=== PATIENT | female | born 1965 | race Caucasian/White ===

== ENCOUNTER 2023-12-19 05:15 | Inpatient (IN) ==
[2023-12-19] MEDS: 0.9 % SODIUM CHLORIDE 1,000 ML IV ONE ×2 (05:40→07:21)
[2023-12-19] MEDS: levETIRAcetam 1,000 MG in 0.9 % SODIUM CHLORIDE 100 ML IV ONE (05:40)
[2023-12-19 06:14] LABS: Basophils # (Auto) 0.04 K/mcL (0.00-0.30); Basophils % (Auto) 0.5 % (0.0-2.0); Eosinophils # (Auto) 0.17 K/mcL (0.00-0.70); Eosinophils % (Auto) 1.9 % (0.0-7.0); Hematocrit 38.8 % (34.1-44.9); Hemoglobin 11.9 g/dL (11.2-15.7); Lymphocytes # (Auto) 1.29 K/mcL (1.50-4.80); Lymphocytes % (Auto) 14.7 % (15.5-49.0); Mean Cell Volume 92.6 fL (80.0-100.0); Mean Corpuscular HGB Conc 30.7 g/dL (31.0-36.0); Mean Platelet Volume 9.7 fL (8.8-12.5); Monocytes # (Auto) 0.43 K/mcL (0.10-0.90); Monocytes % (Auto) 4.9 % (1.0-12.0); Neutrophils % (Auto) 77.8 % (38.0-78.0); Platelet Count 239 K/mcL (140-440); RBC 4.19 M/mcL (3.59-5.38); Red Cell Distribution Width 14.3 % (11.5-14.5); WBC 8.8 K/mcL (4.5-11.0)
[2023-12-19 06:20] LABS: Alcohol, Blood < 10.1 mg/dL; Alcohol,Blood < 0.010 gm/dL (<0.010)
[2023-12-19 06:28] LABS: ALT/SGPT 8 U/L (<40); AST/SGOT 21 U/L (<32); Albumin 3.8 gm/dL (3.2-5.2); Albumin/Globulin Ratio 1.1 (1.0-2.3); Alkaline Phosphatase 122 U/L (39-117); Bilirubin,Total 0.3 mg/dL (0.1-1.0); Blood Urea Nitrogen 17 mg/dL (6-20); Calcium 9.2 mg/dL (8.6-10.4); Carbon Dioxide 26 mmol/L (22-30); Chloride 97 mmol/L (96-108); Globulin 3.6 gm/dL (2.2-3.7); Glomerular Filtration Rate 61; Glucose 197 mg/dL (70-105)
[2023-12-19] MEDS: MECLIZINE 25 MG TABLET PO ONE (07:20)
[2023-12-19 09:33] LABS: Amphetamine Screen,Urine None detected; Barbiturate Screen,Urine Suspect positive; Benzodiazepines Screen,Urine None detected; Cannabinoid Screen,Urine None detected; Cocaine Screen,Urine None detected; Opiate Screen,Urine None detected; Oxycodone, Urine Screen None detected; Phencyclidine Screen,Urine None detected
[2023-12-19 09:54] LABS: Appearance,Urine HAZY (Clear); Bilirubin,Urine Negative (Negative); Color,Urine YELLOW; Culture Indicated,Urine No; Glucose,Urine (UA) Negative (Negative); Ketones,Urine Negative (Negative); Leukocyte Esterase,Urine Negative /uL (Negative); Mucus,Urine FEW /hpf; Nitrate,Urine Negative (Negative); Protein,Urine Negative (Negative); Specific Gravity,Urine 1.009 (1.000-1.035); Urine Hyaline Cast 7 /lph (0-2); Urine RBC 4 /hpf (0-3); Urine Squamous Epithelial Cell 1 /hpf (0-4); Urine WBC 0 /hpf (0-4); Urobilinogen,Urine Negative
[2023-12-19 10:19] LABS: ABG Methemoglobin 0.2 % (0.4-1.5); Total Hemoglobin 12.7 gm/Dl (12.0-15.0); VBG Base Excess 1 (-2-3); VBG HCO3 28.5 mmol/L (24.0-28.0); VBG Oxygen Saturation 83.3 % (40.0-70.0); VBG PCO2 57.9 mmHg (41.0-51.0); VBG PH 7.31 U (7.32-7.42); VBG Total CO2 30.3 mmol/L (25.0-29.0)
[2023-12-19] MEDS: NALOXONE HCL 0.4 MG/ML VIAL IV ONE (11:06)
[2023-12-19] MEDS: DIAZEPAM 10 MG/2 ML SYRINGE IV ONE (13:00)
[2023-12-19] MEDS: LORazepam 2 MG/ML VIAL IV ONE ×2 (14:21→18:50)
[2023-12-19] MEDS ORDERED: LORazepam 2 MG/ML VIAL IV PRN (14:41)
[2023-12-19] MEDS ORDERED: ONDANSETRON 4 MG/2 ML VIAL IV PRN (14:48)
[2023-12-19] MEDS ORDERED: SENNOSIDES 1 TABLET PO PRN (14:48)
[2023-12-19] MEDS ORDERED: LACTULOSE 20 GM/30 ML ORAL.SOL PO PRN (14:48)
[2023-12-19 15:17] LABS: C-Reactive Protein 0.85 mg/dL (0.03-0.80)
[2023-12-19] MEDS: LACTATED RINGERS 1,000 ML IV SCH (15:29)
[2023-12-19] MEDS: 0.9 % SODIUM CHLORIDE 10 ML SYRINGE IV SCH (15:34)
[2023-12-19] MEDS: DOCUSATE SODIUM 100 MG CAPSULE PO SCH (19:19)
[2023-12-19] MEDS ORDERED: ENOXAPARIN 40 MG/0.4 ML SYRINGE SQ SCH (21:00)
[2023-12-19] MEDS ORDERED: levETIRAcetam 500 MG in 0.9 % SODIUM CHLORIDE 100 ML IV SCH (21:00)
== END 2023-12-19 20:49 | disposition short-term general hospital (02) | DRG 101 ==
LOC: ED 05:15 → ICU 14:03
PROVIDERS: ADMIT Student in an Organized Health Care Education/Training Program; ATTEND Student in an Organized Health Care Education/Training Program

== ENCOUNTER 2025-05-31 19:21 | Inpatient (IN) ==
[2025-05-31 20:04] LABS: Basophils # (Auto) 0.03 K/mcL (0.00-0.30); Basophils % (Auto) 0.3 % (0.0-2.0); Eosinophils # (Auto) 0.22 K/mcL (0.00-0.70); Eosinophils % (Auto) 1.9 % (0.0-7.0); Hematocrit 38.7 % (34.1-44.9); Hemoglobin 11.1 g/dL (11.2-15.7); Lymphocytes # (Auto) 2.18 K/mcL (1.50-4.80); Lymphocytes % (Auto) 19.3 % (15.5-49.0); Mean Corpuscular HGB Conc 28.7 g/dL (31.0-36.0); Monocytes # (Auto) 0.69 K/mcL (0.10-0.90); Monocytes % (Auto) 6.1 % (1.0-12.0); Neutrophils % (Auto) 72.3 % (38.0-78.0); Platelet Count 232 K/mcL (140-440); RBC 4.04 M/mcL (3.59-5.38); WBC 11.3 K/mcL (4.5-11.0)
[2025-05-31] MEDS: AZITHROMYCIN 500 MG in DEXTROSE 5% IN WATER 250 ML IV ONE (20:15)
[2025-05-31] MEDS: cefTRIAXone 1 GM VIAL IV ONE (20:16)
[2025-05-31] MEDS: 0.9 % SODIUM CHLORIDE 1,000 ML IV ONE (20:16)
[2025-05-31 20:46] LABS: Bacteria,Urine Few /hpf (0); Bilirubin,Urine Negative (Negative); Color,Urine Yellow; Glucose,Urine (UA) Negative (Negative); Ketones,Urine Negative (Negative); Leukocyte Esterase,Urine Negative /uL (Negative); PH,Urine 6.0 (5.0-9.0); Protein,Urine Negative (Negative); Specific Gravity,Urine 1.020 (1.000-1.035); Urobilinogen,Urine Normal
[2025-05-31 20:52] LABS: ALT/SGPT 5 U/L (<40); AST/SGOT 12 U/L (<32); Albumin 3.4 gm/dL (3.2-5.2); Albumin/Globulin Ratio 1.0 (1.0-2.3); Alkaline Phosphatase 137 U/L (39-117); Anion Gap 9.0 (8.0-16.0); Bilirubin,Total 0.3 mg/dL (0.1-1.0); Blood Urea Nitrogen 11 mg/dL (6-20); Calcium 9.0 mg/dL (8.6-10.4); Carbon Dioxide 26 mmol/L (22-30); Chloride 105 mmol/L (96-108); Globulin 3.5 gm/dL (2.2-3.7); Glucose 128 mg/dL (70-105); Potassium 4.1 mmol/L (3.3-5.1); Sodium 140 mmol/L (133-145)
[2025-05-31] MEDS: IPRATROPIUM/ALBUTEROL 3 ML AMPUL.NEB NEB ONE (20:59)
[2025-05-31] MEDS: 0.9 % SODIUM CHLORIDE 500 ML IV ONE (22:54)
[2025-05-31] MEDS: levETIRAcetam 500 MG in 0.9 % SODIUM CHLORIDE 100 ML IV ONE (23:51)
[2025-06-01] MEDS: NICOTINE 21 MG PATCH TOPICAL ONE (00:03)
[2025-06-01] MEDS: NICOTINE 14 MG PATCH TOPICAL ONE (00:06)
[2025-06-01] MEDS ORDERED: ONDANSETRON 4 MG/2 ML VIAL IV PRN (01:11)
[2025-06-01] MEDS ORDERED: LACTULOSE 20 GM/30 ML ORAL.SOL PO PRN (01:11)
[2025-06-01] MEDS ORDERED: SENNOSIDES 1 TABLET PO PRN (01:11)
[2025-06-01] MEDS ORDERED: guaiFENesin/DEXTROMETHORPHAN 5ML UD CUP PO PRN (01:11)
[2025-06-01] MEDS: AZITHROMYCIN 500 MG in DEXTROSE 5% IN WATER 250 ML IV SCH ×2 (01:13→09:40)
[2025-06-01] MEDS: cefTRIAXone 2 GM in DEXTROSE 5% IN WATER 50 ML IV SCH ×2 (01:14→09:40)
[2025-06-01] MEDS: KETOROLAC 30 MG/ML VIAL IV PRN (02:03)
[2025-06-01] MEDS: ACETAMINOPHEN 325 MG TABLET PO PRN (02:09)
[2025-06-01 02:45] LABS: VBG HCO3 23.9 mmol/L (24.0-28.0); VBG PCO2 48.5 mmHg (41.0-51.0); VBG PH 7.31 U (7.32-7.42); VBG PO2 98.3 mmHg (25.0-40.0)
[2025-06-01] MEDS: IPRATROPIUM/ALBUTEROL 3 ML AMPUL.NEB NEB SCH (02:51)
[2025-06-01] MEDS: ACETAMINOPHEN 325 MG TABLET PO ONE (04:15)
[2025-06-01] MEDS: KETOROLAC 30 MG/ML VIAL ONE (04:15)
[2025-06-01] MEDS: 0.9 % SODIUM CHLORIDE 1,000 ML IV SCH (04:26)
[2025-06-01] MEDS: 0.9 % SODIUM CHLORIDE 10 ML SYRINGE IV SCH (04:27)
[2025-06-01 05:47] LABS: VBG HCO3 24.6 mmol/L (24.0-28.0); VBG PCO2 49.2 mmHg (41.0-51.0); VBG PH 7.32 U (7.32-7.42); VBG PO2 103.3 mmHg (25.0-40.0)
[2025-06-01 06:15] LABS: Basophils # (Auto) 0.02 K/mcL (0.00-0.30); Basophils % (Auto) 0.2 % (0.0-2.0); Eosinophils # (Auto) 0.15 K/mcL (0.00-0.70); Eosinophils % (Auto) 1.8 % (0.0-7.0); Hematocrit 36.5 % (34.1-44.9); Hemoglobin 10.3 g/dL (11.2-15.7); Lymphocytes # (Auto) 2.07 K/mcL (1.50-4.80); Lymphocytes % (Auto) 24.6 % (15.5-49.0); Mean Corpuscular HGB Conc 28.2 g/dL (31.0-36.0); Monocytes # (Auto) 0.50 K/mcL (0.10-0.90); Monocytes % (Auto) 5.9 % (1.0-12.0); Neutrophils % (Auto) 67.4 % (38.0-78.0); Platelet Count 197 K/mcL (140-440); RBC 3.76 M/mcL (3.59-5.38); WBC 8.4 K/mcL (4.5-11.0)
[2025-06-01] MEDS: LIDOCAINE 4% TOP PATCH TOPICAL SCH (06:31)
[2025-06-01 06:49] LABS: ALT/SGPT < 5 U/L (<40); AST/SGOT 14 U/L (<32); Albumin 3.2 gm/dL (3.2-5.2); Albumin/Globulin Ratio 1.0 (1.0-2.3); Alkaline Phosphatase 126 U/L (39-117); Anion Gap 10.0 (8.0-16.0); Bilirubin,Total 0.3 mg/dL (0.1-1.0); Blood Urea Nitrogen 10 mg/dL (6-20); Calcium 8.7 mg/dL (8.6-10.4); Carbon Dioxide 26 mmol/L (22-30); Chloride 107 mmol/L (96-108); Globulin 3.1 gm/dL (2.2-3.7); Glucose 154 mg/dL (70-105); Potassium 3.8 mmol/L (3.3-5.1); Sodium 143 mmol/L (133-145)
[2025-06-01] MEDS: IPRATROPIUM/ALBUTEROL 3 ML AMPUL.NEB NEB ONE (06:53)
[2025-06-01] MEDS: ENOXAPARIN 40 MG/0.4 ML SYRINGE SQ SCH (09:36)
[2025-06-01 11:15] LABS: VBG HCO3 23.5 mmol/L (24.0-28.0); VBG PCO2 56.2 mmHg (41.0-51.0); VBG PH 7.24 U (7.32-7.42); VBG PO2 136.3 mmHg (25.0-40.0)
[2025-06-01] MEDS: DOCUSATE SODIUM 100 MG CAPSULE PO SCH (11:27)
[2025-06-01 11:32] LABS: Barbiturate Screen,Urine Suspect positive; Benzodiazepines Screen,Urine None detected; Fentanyl, Urine Screen None Detected; Opiate Screen,Urine Suspect Positive; Oxycodone, Urine Screen None detected; Phencyclidine Screen,Urine None detected
[2025-06-01 11:39] LABS: Alcohol,Blood < 0.010 g/dL (<0.010)
[2025-06-01] MEDS: DIAZEPAM 10 MG/2 ML SYRINGE IV PRN (12:06)
[2025-06-01] MEDS: HYDROcodone/APAP 10/325MG TABLET PO PRN (18:48)
[2025-06-01] MEDS: FAMOTIDINE 20 MG TABLET PO SCH (20:34)
[2025-06-01] MEDS: PRAMIPEXOLE 0.25 MG TABLET PO SCH (20:35)
[2025-06-02 06:57] LABS: ALT/SGPT 5 U/L (<40); AST/SGOT 10 U/L (<32); Albumin 3.2 gm/dL (3.2-5.2); Albumin/Globulin Ratio 1.0 (1.0-2.3); Alkaline Phosphatase 118 U/L (39-117); Anion Gap 9.0 (8.0-16.0); Bilirubin,Direct < 0.2 mg/dL (0-0.3); Bilirubin,Total < 0.2 mg/dL (0.1-1.0); Blood Urea Nitrogen 14 mg/dL (6-20); Calcium 9.0 mg/dL (8.6-10.4); Carbon Dioxide 26 mmol/L (22-30); Chloride 106 mmol/L (96-108); Globulin 3.3 gm/dL (2.2-3.7); Glucose 187 mg/dL (70-105); Phosphorous 2.6 mg/dL (2.5-4.5); Potassium 4.1 mmol/L (3.3-5.1); Sodium 141 mmol/L (133-145); Triglycerides 75 mg/dL (<150); Uric Acid 4.9 mg/dL (2.5-8.0)
[2025-06-02] MEDS: ATORVASTATIN 10 MG TABLET PO SCH (08:43)
[2025-06-02] MEDS: MONTELUKAST 10 MG TABLET PO SCH (08:45)
[2025-06-02] MEDS: PRAMIPEXOLE 1 MG TABLET PO SCH (08:56)
[2025-06-02] MEDS: PRIMIDONE 50 MG TABLET PO SCH (09:01)
[2025-06-03] MEDS: ENOXAPARIN 40 MG/0.4 ML SYRINGE SQ SCH (00:13)
[2025-06-03] MEDS ORDERED: IPRATROPIUM/ALBUTEROL 3 ML AMPUL.NEB NEB PRN (07:31)
[2025-06-03] MEDS: FLUTICASONE/SALMETEROL 250/50 INHALER #14 INH SCH (13:02)
[2025-06-03] MEDS ORDERED: LABETALOL HCL 20 MG/4 ML VIAL IV PRN (16:50)
[2025-06-03] MEDS: LABETALOL HCL 20 MG/4 ML VIAL IV ONE (16:51)
[2025-06-03] MEDS: CARVEDILOL 6.25 MG TABLET PO ONE (17:53)
[2025-06-04 07:41] VITALS: TEMP 97.8
[2025-06-04 08:25] VITALS: O2SAT 97
== END 2025-06-04 10:30 | disposition home or self-care (01) | DRG 871 ==
LOC: ED 19:21 → ICU 06-01 00:57
PROVIDERS: ADMIT Internal Medicine; ATTEND Internal Medicine